=== PATIENT | male | born 1960 | race Caucasian/White ===

== ENCOUNTER 2023-11-30 08:59 | Outpatient (CLI) | payer BC, SELFPAY | END 2023-11-30 09:00 | disposition home or self-care (01) | PROVIDERS: PCP Nurse Practitioner Family; Visit Provider Nurse Practitioner Family | DX: I48.91 Unspecified atrial fibrillation (principal); R06.02 Shortness of breath; Z12.5 Encounter for screening for malignant neoplasm of prostate; Z13.220 Encounter for screening for lipoid disorders | CPT/HCPCS: 80053; 80061; 83735; 83880; 84443; 84484; 85025; G0103 ==

== ENCOUNTER 2023-12-11 13:29 | Outpatient (CLI) | payer BC, SELFPAY | END 2023-12-11 13:30 | disposition home or self-care (01) | LOC: RAD 13:30 | PROVIDERS: PCP Nurse Practitioner Family; Visit Provider Nurse Practitioner Family | DX: I48.91 Unspecified atrial fibrillation (principal); I51.7 Cardiomegaly; I34.0 Nonrheumatic mitral (valve) insufficiency | CPT/HCPCS: 93306 ==

== ENCOUNTER 2023-12-11 14:56 | Emergency (ER) | payer BC, SELFPAY ==
[2023-12-11] VITALS (19 sets, daily range): BP systolic 86–129; BP diastolic 50–94; PULSE 88–109; RESP 14; TEMP 36.6; O2SAT 93–97; BMI 45.6
--- NOTE | 2023-12-11 16:18 | ED.GENADULT ---
HPI - General Adult General Date Seen: 12/11/23 Chief complaint: Arrhythmia/Palpitations Stated complaint: Elevated HR during procedure Time Seen by Provider: 12/11/23 16:18 History of Present Illness HPI narrative: 63-year-old male with a history of hyperlipidemia, atrial fibrillation, lower extremity edema. His med list includes apixaban 5 mg b.i.d. and metoprolol 25 mg b.i.d. Sounds like his AFib was 1st diagnosed on 11/29. He was started on metoprolol 25 mg b.i.d. and Eliquis 5 mg b.i.d. He saw Dr. Hairston in clinic on 12/05/2023 for follow-up of his AFib. He followed up in clinic for recheck on 12/04. He is scheduled to have an echo on 12/10 (today) and a cardiology appointment on 12/27. He has a history of bilateral lower extremity edema, left more than right for about 1 or 2 months. Labs showed white blood cell count of 6.9, hemoglobin 14.8, BUN and creatinine normal. Glucose 107. LFTs normal. Troponin negative. N terminal proBNP was 2150. TSH was normal at 1.09 He was referred to the ER today because he had tachycardia on his echocardiogram. Heart rates reported up to around 170. The patient says he is basically feeling fine. He was not really sure that he should come over to the ER today. He notes that he has been feeling ?slow? for the past couple of months. He thought it might just be because he is getting old and fat. However he did not really have any significant changes BMI over the past couple of months. He is not having any chest pain he is not feeling any palpitations. He does feel short of breath sometime, sometimes with exertion and sometimes when he is out in the heat. He does have some swelling in his ankles which is stable for the past couple of months. He was given a prescription for a diuretic by his doctor last week, but has not started taking it. He is taking his metoprolol and his Eliquis twice daily as directed. He also had a URI in a cough about a month ago that got better. He has another URI and cough productive of some sticky clear sputum for the past 4 days or so. No fever. No new shortness of breath. No nausea or vomiting. No diarrhea. Related Data Previous Rx's ?Medication ?Instructions ?Recorded apixaban 5 mg tablet (Eliquis) 5 mg PO BID #180 tabs 11/30/23 metoprolol tartrate 25 mg tablet 25 mg PO BID 90 days #180 tabs 11/30/23 atorvastatin 20 mg tablet (Lipitor) 20 mg PO QHS #90 tabs 12/05/23 chlorthalidone 25 mg tablet 25 mg PO QDAY #90 tabs 12/05/23 nirmatrelvir 300 mg (150 mg See Rx Instructions PO .COMPLEX 12/11/23 x2)-ritonavir 100 mg tablet,dose #30 ea pack (Paxlovid) Allergies Allergy/AdvReac Type Severity Reaction Status Date / Time No Known Drug Allergies Allergy Verified 12/05/23 09:46 [facility] Social History Smoking Status: Never smoker Do you use any of these nicotine containing products: None How often do you have a drink containing alcohol: never How often do you have six or more drinks on one occasion: Never AUDIT-C Alcohol total score: 0 Non-prescribed substance use: denies use Exam Narrative: Exam Narrative: Constitutional: Appears well-developed and well-nourished. Alert. Conversant. Non toxic. HENT: Head: Atraumatic. Nose: Nose normal. Mouth/Throat: Oral mucosa is clear and moist. no trismus. Pharynx normal. Tonsils symmetric. No tonsillar enlargement, erythema, or exudate. Eyes: Conjunctivae normal. EOM normal. Pupils equal, round, and reactive to light. No scleral icterus. Neck: Normal range of motion. Neck supple. No tracheal deviation present. No JVD Cardiovascular: Tachycardic, irregular irregular rhythm. No gallop. No friction rub. No murmur heard. Symmetric radial artery pulses Pulmonary/Chest: Effort normal. No stridor. No respiratory distress. No wheezes. No rales. No rhonchi . No tenderness. Abdominal: Soft. Protuberant due to body habitus No distension. No mass. No tenderness. No rebound. No guarding. Musculoskeletal: RUE: Normal range of motion. No tenderness. No deformity LUE: Normal range of motion. No tenderness. No deformity RLE: Normal range of motion. 1+ edema. No tenderness. No deformity LLE: Normal range of motion. 1+ edema. No tenderness. No deformity Neurological: Alert and oriented to person, place, and time. Normal strength. CN II-VII intact. No sensory deficit. GCS eye subscore is 4. GCS verbal subscore is 5. GCS motor subscore is 6. Normal coordination Skin: Skin is warm and dry. No rash noted. No pallor. Normal capillary refill. Psychiatric: Normal mood. Normal affect. Const: Vital Signs, click to edit/add: Vital Signs - 24 hr 12/11/23 15:23 12/11/23 15:44 12/11/23 15:45 Temperature 97.8 F Pulse Rate 101 H 109 H Pulse Rate [Pulse Oximeter] 102 H Respiratory Rate 14 Blood Pressure 115/94 H Blood Pressure [Ri ght Upper Arm] 118/88 Pulse Oximetry 96 95 93 Oxygen Delivery Me od Room Air 12/11/23 16:41 12/11/23 16:45 12/11/23 16:54 Temperature Pulse Rate 88 90 107 H Pulse Rate [Pulse Oximeter] Respiratory Rate Blood Pressure 129/94 H Blood Pressure [Ri ght Upper Arm] Pulse Oximetry 94 94 94 Oxygen Delivery Me thod 12/11/23 16:55 12/11/23 17:22 12/11/23 17:23 Temperature Pulse Rate 104 H 98 97 Pulse Rate [Pulse Oximeter] Respiratory Rate Blood Pressure 102/76 Blood Pressure [Ri ght Upper Arm] Pulse Oximetry 94 96 97 Oxygen Delivery Pr thod 12/11/23 17:28 12/11/23 17:30 12/11/23 17:31 Temperature Pulse Rate 98 97 93 Pulse Rate [Pulse Oximeter] Respiratory Rate Blood Pressure 86/73 L 110/68 Blood Pressure [Ri ght Upper Arm] Pulse Oximetry 96 96 93 Oxygen Delivery Me thod 12/11/23 17:45 12/11/23 18:00 12/11/23 18:02 Temperature Pulse Rate 98 102 H 108 H Pulse Rate [Pulse Oximeter] Respiratory Rate Blood Pressure 120/50 L Blood Pressure [Ri ght Upper Arm] Pulse Oximetry 95 96 96 Oxygen Delivery Me thod 12/11/23 18:15 12/11/23 18:30 12/11/23 18:32 Temperature Pulse Rate 108 H 104 H 103 H Pulse Rate [Pulse Oximeter] Respiratory Rate Blood Pressure 112/81 Blood Pressure [Ri ght Upper Arm] Pulse Oximetry 95 95 96 Oxygen Delivery Me thod 12/11/23 18:45 Temperature Pulse Rate 107 H Pulse Rate [Pulse Oximeter] Respiratory Rate Blood Pressure Blood Pressure [Ri ght Upper Arm] Pulse Oximetry 96 Oxygen Delivery Me thod Course Course ED Course: Evaluation performed in ER bed 4. He does have AFib with RVR on the monitor. Has a known history of AFib 1st diagnosed on November 29 but probably has been symptomatic for couple of months. His only symptoms that he feels ?a little bit slow. ?. Without a clear time of onset he would not be safe for cardioversion. He has been therapeutically anticoagulated now for about 9 days. Typically would need to wait 4-6 weeks of anticoagulation before cardioversion would be safe without DARCI. Therefore will offer rate control. Discussed the potential need for hospitalization with the patient. He says he strongly wants to go home and that we should try hard to get his heart rate at a control and discharge him. Recheck-heart rate still in the 120s-130s after metoprolol 5 mg IV. Second dose metoprolol 5 mg IV ordered. Will also order to additional 25 mg metoprolol p.o.. Reevaluation(s) Reevaluation #1: Recheck-heart rate now ranging about 100-115. Predominantly in the 100s, less than 110. Patient continues to be essentially asymptomatic. Occasional cough. No palpitations. No shortness of breath. Blood pressure stable. Recheck-heart rate remains fairly consistently less than 110 but still irregular with AFib. Reevaluation #2: Recheck-COVID positive. Discussed test results with the patient. He would want to treat with Paxlovid. We reviewed his meds. He will left hold his lipid medication and have the dose of his apixaban while on Paxlovid. Given his age, risk factors, I do think he would qualify for Paxlovid. His current illness is been present for about 3 days he would be within the would. Prescription provided. He still wants to discharge home despite his AFib. At this point heart rate has been controlled. I think it is reasonable to discharge home for now. Vital Signs Vital signs: Initial Vital Signs Temperature 97.8 F 12/11/23 15:23 Temperature Source Temporal Artery Scan 12/11/23 15:23 Pulse Rate 102 H 12/11/23 15:23 Pulse Rhythm Regularly Irregular 12/11/23 15:23 Respiratory Rate 14 12/11/23 15:23 Blood Pressure 118/88 12/11/23 15:23 Blood Pressure Mean 98 12/11/23 15:23 Blood Pressure Position Sitting 12/11/23 15:23 Pulse Oximetry 96 12/11/23 15:23 Oxygen Delivery Method Room Air 12/11/23 15:23 Vital Signs Temperature 97.8 F 12/11/23 15:23 Pulse Rate 102 H 12/11/23 15:23 Respiratory Rate 14 12/11/23 15:23 Blood Pressure 118/88 12/11/23 15:23 Pulse Oximetry 96 12/11/23 15:23 Oxygen Delivery Method Room Air 12/11/23 15:23 Temperature 97.8 F 12/11/23 15:23 Pulse Rate 107 H 12/11/23 18:45 Respiratory Rate 14 12/11/23 15:23 Blood Pressure 112/81 12/11/23 18:32 Pulse Oximetry 96 12/11/23 18:45 Oxygen Delivery Method Room Air 12/11/23 15:23 Medications Administered Medications: Discontinued Medications Generic Name Dose Route Start Last Admin Trade Name Freq PRN Reason Stop Dose Admin Metoprolol Tartrate 5 mg 12/11/23 16:42 12/11/23 16:51 Metoprolol Tartrate 1 Mg/Ml Inj IVP 12/11/23 16:43 5 mg ONCE ONE Administration Metoprolol Tartrate 5 mg 12/11/23 17:33 12/11/23 17:37 Metoprolol Tartrate 1 Mg/Ml Inj IVP 12/11/23 17:34 5 mg ONCE ONE Administration Metoprolol Tartrate 25 mg 12/11/23 17:50 12/11/23 17:55 Metoprolol Tartrate 25 Mg Tablet PO 12/11/23 17:51 25 mg ONCE ONE Administration Medical Decision Making [facility] Narrative Medical decision making narrative: This patent presents for evaluation of elevated heart rate in the setting of recently diagnosed AFib.. This is consistent with atrial fibrillation with rapid ventricular response. Since he has had symptoms for an undetermined amount of time but at least 10 days, and has only been on 9 days of anticoagulation, he is not a good candidate for electrical cardioversion due to risk of embolic stroke. Therefore will opt for rate control. He is already on metoprolol 25 mg b.i.d.. He received additional IV doses of metoprolol 5 mg IV x2 and also additional oral metoprolol 25 mg p.o.. With this, heart rate improved and is now fairly consistently 110 or lower. Blood pressure remained stable and he remains essentially asymptomatic. I doubt acute coronary syndrome, thyroid issues, PE, dissection, drug ingestion, acute electrolyte imbalance. Labs and CXR look ok. No sinus CHF on the chest x-ray he has no hypoxia or shortness of breath. He does have cardiomegaly. BNP is elevated but I think that probably reflects myocardial strain from AFib with RVR rather than CHF. He has also had a cough for the past 3 or 4 days. Chest x-ray clear negative for pneumonia. No wheezing or bronchospasm on exam. Oxygen sat normal. Clinically well-appearing. White count normal. He is positive for COVID. Given medical comorbidities he would be high risk for severe illness and therefore a good candidate for Paxlovid. We will start that with prescription tonight. He will have to hold his lipid medication while on Paxlovid due to interactions. He will have to decrease his dose of apixaban by half full on Paxlovid. He wants i to discharge home. Will increase his metoprolol from 25 mg b.i.d. up to 50 mg b.i.d.. He will follow up outpatient with Cardiology. Had a detailed discussion about return precautions with this patient. Discussed the risks of uncontrolled AFib and/or slow heart rate from metoprolol. Also discussed the risk of worsening COVID. He understands and will return if any concerns develop. Questions answered. Lab Data Labs: Lab Results 12/11/23 12/11/23 Range/Units 16:05 16:20 WBC 5.56 (4.50-11.00) K/uL RBC 5.10 (4.30-5.90) m/uL Hgb 13.5 (13.5-17.5) gm/dL Hct 42.1 (37.0-53.0) % MCV 83 (80-100) fL MCH 27 (26-34) pg MCHC 32 (32-36) gm/dL RDW Coeff of Machelle 13.5 (11.5-15.5) % Plt Count 178 (140-440) K/uL Neut % (Auto) 57.9 (42.0-72.0) % Lymph % (Auto) 16.2 L (20-44) % Avery % (Auto) 17.1 H (0.0-11.0) % Eos % (Auto) 5.4 (0.0-7.0) % Baso % (Auto) 0.7 (0.0-3.0) % Neut # (Auto) 3.22 (1.7-7.0) K/uL Lymph # (Auto) 0.90 (0.90-2.90) K/uL Avery # (Auto) 1.00 H (0.00-0.90) K/UL Eos # (Auto) 0.30 (0.00-0.50) K/uL Baso # (Auto) 0.04 (0.00-0.30) K/uL Abs Immat Gran (auto) 0.15 (0.00-0.30) K/uL Imm/Tot Granulo (auto) 2.7 % D-Dimer Quant (PE/DVT) 0.60 H (0.00-0.50) ug/ml Sodium 134 L (135-149) mmol/L Potassium 3.6 (3.6-5.1) mmol/L Chloride 96 (96-114) mmol/L Carbon Dioxide 30 (20-32) mmol/L Anion Gap 8 (7-15) mEq/L BUN 20 (7-30) mg/dL Creatinine 0.9 (0.5-1.5) mg/dL Estimated Creat Clear 72.20 Estimated GFR 95 ml/min Glucose 113 (60-115) mg/dL Calcium 8.8 (8.4-10.6) mg/dL Troponin I < 0.01 L (0.01-0.04) ng/mL NT-Pro-B Natriuret Pep 2170 pg/mL SARS-CoV-2 (PCR) POSITIVE SARS-CoV-2 A (Negative) Influenza Type A (PCR) Negative PCR FLU A (Negative) Influenza Type B (PCR) Negative PCR FLU B (Negative) RSV (PCR) Negative PCR RSV (Negative) Imaging Data Chest x-ray: Attestation: I have reviewed the pertinent imaging results. Radiologist's impression: IMPRESSION: 1. Mild, stable cardiomegaly is noted. ECG Data Attestation: I personally reviewed and interpreted this ECG as follows: Interpretation: Atrial fibrillation with RVR Rate: 131 [place]: na QRS axis: Normal axis. No pathologic Q-waves feel ST segment/T wave: No ST segment elevation or depression. QTc: 490 Discharge Plan Discharge Clinical Impression: Atrial fibrillation with rapid ventricular response, COVID-19 Patient Disposition: Home, Self-Care Condition: Stable Instructions: A-fib (Atrial Fibrillation) (ED), COVID-19 (Coronavirus Disease 2019) (ED), How to Recover from COVID-19 at Home (ED) Additional Instructions: As we discussed, your atrial fibrillation was causing a heart rate that was too rapid today. We were able to bring your heart rate down to a safer range with the extra metoprolol. To keep your heart rate under control, increase your home dose of metoprolol up to 50 mg twice daily (2 tablets in the morning and 2 tablets in the evening) You also have coronavirus. Fortunately your oxygen it and other blood pressure are stable. We will start the antiviral medication Paxlovid to treat your COVID. Fill the Paxlovid prescription tomorrow morning and take your 1st dose tomorrow. Paxlovid is taken twice daily for 5 days. While you are on Paxlovid, do not take your cholesterol medication. While you are on Paxlovid, you should decrease the dose of Eliquis (the blood thinner for your atrial fibrillation) to 2.5 mg twice a day (half a pill in the morning and half a pill in the evening) After you finish taking Paxlovid, go back to the full dose of Eliquis (1 pill in the morning and 1 pill in the evening) and you can start taking your cholesterol medication. Measure heart rate 2 times a day and keep a log of your heart rate. If you have any heart rate over 110 beats per minute come back to the ER. If you have any worsening symptoms such as worsening cough, trouble breathing, chest pain, dizzy spells or fainting, high fever, weakness, dehydration, or any problems, come back to the ER right away. Prescriptions: New Paxlovid 300 mg (150 mg x 2)-100 mg tablets,dose pack See Rx Instructions .ROUTE .COMPLEX Qty: 30 0RF Rx Instructions: take TWO 150 mg tablets of nirmatrelvir with ONE 100 mg tablet of ritonavir twice daily for 5 days No Action atorvastatin [Lipitor] 20 mg tablet 20 mg PO QHS Qty: 90 3RF chlorthalidone 25 mg tablet 25 mg PO QDAY Qty: 90 3RF metoprolol tartrate 25 mg tablet 25 mg PO BID 90 Days Qty: 180 3RF Eliquis 5 mg tablet 5 mg PO BID Qty: 180 3RF Follow Up/Referrals: Indira Hairston, [employer], F[employer]DER [Primary Care Provider] - Stand Alone Forms: MyHealth Info Instructions
--- NOTE | 2023-12-11 16:42 | CRLHL7_ITS ---
For Patients: As a result of the Cures Act, medical imaging exams and procedure reports are released immediately into your electronic medical record. You may view this report before your referring provider. If you have questions, please contact your health care provider. INDICATION: Cough, atrial fibrillation with rapid ventricular response TECHNIQUE: Chest radiograph 2 views COMPARISON: 11/30/2023 FINDINGS: The sensitivity and specificity of the exam are moderately limited by the patient`s body habitus. Mediastinum: The mediastinum is normal in appearance. Mild, stable cardiomegaly is noted. Lung: Both lungs are unremarkable in appearance. No sign of pleural effusion seen. No pneumothorax is identified. Bone and Soft tissue: Unremarkable for age. IMPRESSION: 1. Mild, stable cardiomegaly is noted. Dictated by Brennen Leal MD @ 12/11/2023 6:06:22 PM Dictated by: Brennen Leal MD @ 12/11/2023 18:06:47 (Electronically Signed)
[2023-12-11] MEDS: METOPROLOL TARTRATE 1 MG/ML inj 5 MG IVP ×2 (16:51→17:37)
[2023-12-11 17:02] LABS: Basophils Absolute Auto 0.04 K/uL (0.00-0.30); Basophils Percent Auto 0.7 % (0.0-3.0); Eosinophils Percent Auto 5.4 % (0.0-7.0); Hematocrit 42.1 % (37.0-53.0); Hemoglobin* 13.5 gm/dL (13.5-17.5); Immature Granulocytes Abs Auto 0.15 K/uL (0.00-0.30); Immature Granulocytes Pct Auto 2.7 %; Lymphocytes Percent Auto 16.2 % (20-44); Mean Corpuscular HGB Conc 32 gm/dL (32-36); Mean Corpuscular Hemoglobin 27 pg (26-34); Mean Corpuscular Volume 83 fL (80-100); Monocytes Percent Auto 17.1 % (0.0-11.0); Neutrophils Absolute Auto 3.22 K/uL (1.7-7.0); Neutrophils Percent Auto 57.9 % (42.0-72.0); Platelet Count* 178 K/uL (140-440); RDW Coefficient of Variation % 13.5 % (11.5-15.5); White Blood Count* 5.56 K/uL (4.50-11.00)
[2023-12-11 17:05] LABS: Slide Review Reflex No
[2023-12-11 17:30] LABS: Chloride* 96 mmol/L (96-114); Potassium* 3.6 mmol/L (3.6-5.1); Sodium* 134 mmol/L (135-149)
[2023-12-11 17:33] LABS: Anion Gap 8 mEq/L (7-15); Blood Urea Nitrogen* 20 mg/dL (7-30); Carbon Dioxide* 30 mmol/L (20-32); Creatinine* 0.9 mg/dL (0.5-1.5); Estimated Glomerular Filt Rate 95 ml/min
[2023-12-11 17:34] LABS: Calcium* 8.8 mg/dL (8.4-10.6); Glucose* 113 mg/dL (60-115)
[2023-12-11 17:40] LABS: PCR FLU A Negative PCR FLU A (Negative); PCR FLU B Negative PCR FLU B (Negative); PCR RSV Negative PCR RSV (Negative); SARS PCR* POSITIVE SARS-CoV-2 (Negative)
[2023-12-11 17:50] LABS: NT Pro B Type NatriureticPept* 2170 pg/mL; Troponin I* < 0.01 ng/mL (0.01-0.04)
[2023-12-11] MEDS: METOPROLOL TARTRATE 25 MG TABLET PO (17:55)
== END 2023-12-11 19:24 | disposition home or self-care (01) ==
PROVIDERS: Emergency Provider Emergency Medicine; PCP Nurse Practitioner Family
DX: U07.1 COVID-19 (principal); I48.91 Unspecified atrial fibrillation
CPT/HCPCS: 36415; 71046; 80048; 83880; 84484; 85025; 85379; 87631; 93306; 96374; 96375; 99284; A9270

== ENCOUNTER 2023-12-13 19:49 | Outpatient (CLI) | payer BC, SELFPAY ==
--- NOTE | 2023-12-26 08:44 | W.PM.SLEEP ---
Sleep Study Details Details Interpreting Provider: Eduardo Date of Sleep Study: 12/13/23 Sleep Study Details: STUDY TYPE:? Home unattended ? BMI:? 45.6 ORDERING PROVIDER:Maryann Hairston INDICATION:? Concerned about sleep apnea ? SLEEP SUMMARY:? 327.8 minutes monitored RESPIRATORY SUMMARY:? AHI 64.2 Low oxygen 78 25.4% of study oxygen less than 90% Snoring 46.5% PERIODIC LIMB MOVEMENTS OF SLEEP:? Not recorded CARDIAC:? Range 41-136, mean 81.7 IMPRESSION:? Severe obstructive sleep apnea with significant hypo oxygenation. Bradycardia and tachycardia were noted as well RECOMMENDATION: Further cardiac evaluation may be indicated because of bradycardia and tachycardia. For the sleep apnea would recommend an in-lab titration. If that is not possible would start AutoSet CPAP pressure 4-18.
== END 2023-12-13 19:50 | disposition home or self-care (01) ==
LOC: SLEEP 19:50
PROVIDERS: PCP Nurse Practitioner Family; Visit Provider Nurse Practitioner Family
DX: I48.91 Unspecified atrial fibrillation (principal); I51.7 Cardiomegaly; I34.0 Nonrheumatic mitral (valve) insufficiency
CPT/HCPCS: 95806

== ENCOUNTER 2024-10-14 09:29 | Outpatient (CLI) | payer BC, SELFPAY | END 2024-10-14 09:30 | disposition home or self-care (01) | PROVIDERS: PCP Nurse Practitioner Family; Visit Provider Nurse Practitioner Family | DX: E78.5 Hyperlipidemia, unspecified (principal); R60.0 Localized edema; Z51.81 Encounter for therapeutic drug level monitoring | CPT/HCPCS: 80053; 85025 ==

== ENCOUNTER 2024-10-28 09:54 | Outpatient (CLI) | payer BC, SELFPAY | END 2024-10-28 09:55 | disposition home or self-care (01) | PROVIDERS: PCP Nurse Practitioner Family; Visit Provider Nurse Practitioner Family | DX: E78.5 Hyperlipidemia, unspecified (principal) | CPT/HCPCS: 80048; 80061 ==

== ENCOUNTER 2024-11-04 06:02 | Day surgery (SDC) | payer BC, SELFPAY ==
[2024-11-04] VITALS (14 sets, daily range): BP systolic 107–135; BP diastolic 52–88; PULSE 62–76; RESP 14–16; TEMP 36.5–37.1; O2SAT 93–100; BMI 42.2
[2024-11-04] MEDS: LACTATED RINGERS 1000 ML 1,000 ML 100 ML IV ×2 (06:30→08:29)
[2024-11-04] MEDS: SODIUM CHLORIDE 0.9 % (FLUSH) 10 ML SYRINGE IVF (06:34)
[2024-11-04] MEDS: ACETAMINOPHEN 500 MG TABLET 1000 MG PO ×2 (07:00→12:54)
--- NOTE | 2024-11-04 07:00 | W.PM.H&PU ---
History & Physical Update History & Physical Update H&P Reviewed and patient assessed: No changes noted
[2024-11-04] MEDS: OXYCODONE (CR) 10 MG TAB.ER.12H PO (07:04)
--- NOTE | 2024-11-04 07:05 | SUR.PREOP ---
TIME?OUT:?05 PT/RN/MDA?VERIFICATION?OF?SURGICAL?SITE,?PROCEDURE,?AND?CONSENT OBTAINED?PRIOR?TO?INVASIVE?PROCEDURE.
[2024-11-04] MEDS: MIDAZOLAM HCL 1 MG/ML inj IVP (07:06)
--- NOTE | 2024-11-04 07:15 | CRLHL7_ITS ---
For Patients: As a result of the Cures Act, medical imaging exams and procedure reports are released immediately into your electronic medical record. You may view this report before your referring provider. If you have questions, please contact your health care provider. Indication: Hip replacement surgery Technique: AP hip fluoroscopic image. Fluoroscopy time 35.7 seconds. Findings/Impression: Hardware from a left total hip arthroplasty is in satisfactory position. Dictated by Bernard Zamora MD @ 11/04/2024 9:30:50 AM (Electronically Signed)
[2024-11-04] MEDS: TRANEXAMIC ACID 100 MG/ML INJ 1000 MG IV (07:38)
--- NOTE | 2024-11-04 08:12 | P.ANES_ITS ---
Anesthesia Charges Start Date/Time Anesthesia Start Date: 11/04/24 Anesthesia Start Time: 07:21 Stop Date/Time Anesthesia Stop Date: 11/04/24 Anesthesia Stop Time: 10:13 Coding CPT Codes CPT Codes: ANESTH HIP ARTHROPLASTY - 66087 ([id number]) P3 - PATIENT W/SEVERE SYS DISEASE, QK - ROUTE SALESPERSON 2-4 CNCRNT ANES PROC, QX - UX ENGINEER SVC W/ MD MED DIRECTION
--- NOTE | 2024-11-04 08:12 | W.PM.NB ---
Nerve Block Nerve Block Time Seen by Provider: 07:10 Date Seen: 11/04/24 Type of block requested by surgeon for post-operative analgesia: SOTERO/LFCN Side: left Time out performed: Yes Verification of patient name: Yes Verification of date of : Yes Site marking: site marked Name of person performing procedure: David Continuous monitoring Was continuous monitoring of O2 sat, B/P, personnel monitor, recorded every 15 minutes?: Yes Procedure Checklist: sterile prep, needles and gloves Ultrasound guided. Images saved: Yes Medications given in 5ml increments after negative aspiration: Ropivicaine %: 0.5 mL: 30 Needle gauge: 20 Precedex (mcg): 25 Patient tolerated procedure well: Yes Additional comments: Needle noted below psoas tendon needle noted adjacent to LFCN Block Charges Block Charge (with Pro Fee): Other Periph Nerve Block Use of Ultrasound Machine for Block: Yes- US Guidance/pain block
--- NOTE | 2024-11-04 08:12 | W.ANESCHARGE ---
Anesthesia Charges Start Date/Time Anesthesia Start Date: 11/04/24 Anesthesia Start Time: 07:21 Stop Date/Time Anesthesia Stop Date: 11/04/24 Anesthesia Stop Time: 10:13 Coding CPT Codes CPT Codes: ANESTH HIP ARTHROPLASTY - 42353 ([id number]) P3 - PATIENT W/SEVERE SYS DISEASE, QK - ROAD FREIGHT CONDUCTOR 2-4 CNCRNT ANES PROC, QX - CANDLE MAKER SVC W/ MD MED DIRECTION
--- NOTE | 2024-11-04 09:20 | P.ORPRC_ITS ---
Procedure Note Date of procedure: 11/04/24 Procedure: PREOPERATIVE DIAGNOSIS: 1. Left hip osteoarthritis, severe, primary POSTOPERATIVE DIAGNOSIS: 1. Left hip osteoarthritis, severe, primary PROCEDURE: 1. Left total hip arthroplasty-anterior approach 2. [id number] - intraoperative fluoroscopy up to 1 hour. SURGEON: Cong Sims MD. RELAY MOTORMAN: Alvin Souza PA-C; ROMANA Kumar - Of note, a skilled assistant family teacher was critical for this case to aid in patient positioning, tissue retraction, limb manipulation/positioning, dislocation/relocation, patient safety, and closure. ANESTHESIA: General endotracheal anesthetic EBL: 400 mL IMPLANTS: DePuy J&J uncemented total hip [place] cup size 58, hole eliminator, +4 neutral liner Actis stem, high offset, size 9 +1.5 mm ceramic 36 mm head. COMPLICATIONS: None evident INDICATIONS: The patient is a pleasant 64-year-old male who has experienced severe left hip pain and difficulty bearing weight. Workup included x-rays which revealed severe osteoarthrosis in the hip. Given the deformity, the dysfunction, and the pain, as well as the failure of nonoperative management, recommendation was made for surgery. FINDINGS: Full-thickness chondral loss diffusely throughout the femoral head and acetabulum. Osteophytes around the femoral head/neck junction and acetabular perimeter. Calcified labrum. Significant joint effusion and synovitis noted upon entering the joint capsule. DESCRIPTION OF PROCEDURE: Following a thorough discussion of risks, benefits, and alternatives consent was obtained and the left hip was marked. The patient was brought to the operating room and placed supine on the operating table. Induction of anesthesia was undertaken. 3 g IV Ancef and 1 g tranexamic acid was administered within 1 hr of incision preoperatively. Proper time-out was performed identifying proper patient, site, procedure. The operative extremity was prepped and draped in the appropriate sterile fashion using ChloraPrep after the patient was positioned on the [place] table with head in neutral alignment and all bony prominences well padded. C-arm fluoroscopic imaging was utilized to confirm proper pelvis rotation and position, and to get true AP films of both the contralateral left, and the affected left hip. This is for comparison. A longitudinal incision was made starting approximately 1 cm distal to the ASIS, and 2-3 cm lateral. The incision was extended distally aiming toward the fibular head. Sharp incision through skin and bovie cautery through the subcutaneous tissue allowed identification of the TFL fascia. This was sharply divided, and the fascia bluntly released from the muscle fibers as we dissected medial. Upon coming to the medial border, we were able to retract the TFL laterally, and penetrated the deeper fascia and identify the crossing circumflex vessels. These were ligated/cauterized. The rectus was elevated from the capsule, and retractors placed laterally and medially along the femoral neck to help with visualization of the capsule. We then performed an inverted T capsulotomy. The capsule was tagged for later repair. Retractors were placed inside the capsule. The femoral neck was visualized after releasing medially down to the lesser trochanter, along the saddle laterally, and up onto the acetabulum. The femoral neck cut was made in line with our preoperative templating. The head was removed in a single piece, and sized. We turned our attention to acetabular preparation. Initially, the labrum was resected from around the perimeter, the pulvinar was excised, allowing us to visualize the false wall. We started the reaming with a 43 mm reamer. This was medialized down to the true wall. We then enlarged our reamers sequentially up to one size less than the selected cup size. We trialed at the same size and found it to have an excellent fit. The selected cup was then opened, inserted, and impacted in line with the goal of 40-45? of abduction, and 20-25? of anteversion. This was confirmed on C-arm fluoroscopic imaging to be in the appropriate/goal position. Once the cup was placed we placed a hole eliminator and a liner consistent with preop planning. Attention was turned to the femoral preparation. The limb was extended, externally rotated, and adducted. The posteromedial capsule was released, as retractors were placed allowing excellent access to the proximal femur. Initially a box hinge and lock attacher was followed by canal finder followed by various broaches. We broached sequentially up to size noted above, found it to have excellent rotational control, and trialing various heads and necks, revealed that appropriate neck offset, and the above noted head size provided the greatest stability, and amish of length, and offset. C-arm fluoroscopic imaging confirmed position of the stem, as well as leg lengths, which were compared with the pre procedure all fluoroscopic images. Trial implants were removed, the real femoral stem inserted, as was the ceramic head. After reducing, the leg was placed through range of motion and stability was confirmed anterior, posterior, and lateral. A 3 min Betadine soak was then performed, and thorough irrigation with normal saline followed. Closure of the capsule was performed with #1 PDS. Bleeding was confirmed to be controlled at this stage, and the TFL fascia was closed with #0 strata fix. Subcutaneous, and subcuticular closure was performed with 2-0 Stratafix and 4-0 Stratafix, respectively. Dressings were applied, and the patient was awoken from anesthesia and transferred the PACU in stable condition. A skilled assistant family teacher was critical for this case to aid in patient positioning, tissue retraction, proximal femur exposure, limb manipulation/positioning, dislocation/relocation, patient safety, and closure. PLAN: 1. Weight bear as tolerated operative extremity. 2. 23 hr perioperative antibiotics. 3. Ice. 4. PT/OT consults for ambulation assistance/mobility education. 5. Social work consult for discharge planning. 6. DVT prophylaxis with at [facility] and he will return to his Eliquis use of 5 mg p.o. b.i.d..
--- NOTE | 2024-11-04 10:13 | CRLHL7_ITS ---
For Patients: As a result of the Cures Act, medical imaging exams and procedure reports are released immediately into your electronic medical record. You may view this report before your referring provider. If you have questions, please contact your health care provider. Indication: total hip replacement Technique: AP hip centered pelvis and lateral view left hip Findings/Impression: Hardware from a left total hip arthroplasty is in satisfactory position. Bone alignment is normal. No sign of acute fracture. Postop changes are within normal limits. Dictated by Bernard Zamora MD @ 11/04/2024 12:11:23 PM (Electronically Signed)
--- NOTE | 2024-11-04 10:15 | P.ANES_ITS ---
Anesthesia Charges Start Date/Time Anesthesia Start Date: 11/04/24 Anesthesia Start Time: 07:21 Stop Date/Time Anesthesia Stop Date: 11/04/24 Anesthesia Stop Time: 10:13 Coding CPT Codes CPT Codes: ANESTH HIP ARTHROPLASTY - 33683 ([id number]) P3 - PATIENT W/SEVERE SYS DISEASE, QK - PULL OVER MACHINE OPERATOR 2-4 CNCRNT ANES PROC, QX - CATH LABORATORY TECHNICIAN SVC W/ MD MED DIRECTION
--- NOTE | 2024-11-04 10:15 | W.ANESCHARGE ---
Anesthesia Charges Start Date/Time Anesthesia Start Date: 11/04/24 Anesthesia Start Time: 07:21 Stop Date/Time Anesthesia Stop Date: 11/04/24 Anesthesia Stop Time: 10:13 Coding CPT Codes CPT Codes: ANESTH HIP ARTHROPLASTY - 41349 ([id number]) P3 - PATIENT W/SEVERE SYS DISEASE, QK - CYLINDER DEVALVER 2-4 CNCRNT ANES PROC, QX - DIE ENGRAVER SVC W/ MD MED DIRECTION
[2024-11-04] MEDS: LACTATED RINGERS 1000 ML 1,000 ML 500 ML IV (10:50)
== END 2024-11-04 13:55 | disposition home or self-care (01) ==
LOC: OR 06:03
PROVIDERS: PCP Nurse Practitioner Family; Visit Provider Orthopaedic Surgery Sports Medicine
PROC: (CPT 27130; principal; 2024-11-04 07:15)
DX: M16.12 Unilateral primary osteoarthritis, left hip (principal); G89.18 Other acute postprocedural pain
CPT/HCPCS: 27130; 01214; 36415; 64450; 73501; 76000; 76942; 86850; 86900; 86901; 97110; 97116; 97162; 97165; 97535; A9270; C1776; J0330; J0690; J1100; J1171; J2250; J2405; J2704; J2710; J2795; J3010; J3475; J3490; J7120

== ENCOUNTER 2024-11-18 09:45 | Outpatient (RCR) | payer BC, SELFPAY ==
--- NOTE | 2024-11-11 10:05 | PT.OPEX ---
PT [place] Outpatient Eval PT [facility] Outpatient Eval Start: 11/11/24 09:19 Freq: Status: Active Protocol: Document 11/11/24 09:19 NLR (Rec: 11/11/24 10:02 NLR [id number]) E-signed By Jayla Nava DPT Physical Therapy Outpatient Evaluation Insurance Information Recert Due Date 02/09/25 Insurance Name Blue Cross/Blue Shield Medical Diagnosis Z96.642 Left artificial hip joint Treating Diagnosis M25.552 Pain in left hip M62.552 Weakness left thigh Referring MD Quique Parker MD Subjective Preferred Name PAPA Subjective Papa arrives for his PT evaluation one week s/p left LOGAN with Dr. Parker (anterior approach) on 11/04/24. He has been showering and getting dressed on his own. Difficulty with socks, but he just stopped wearing them for now. He is walking independently with SPC. He has been icing with compression ice machine daily. Pain Comments 4/10 Not really painful, kind of numb and mild incisional pain. He is still taking the oxycodone, but is working on weaning off. 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 He lives in a multilevel house with his mother, bedroom and bathroom on the main floor. He has ramp to get into and out of house, has gone up and down stairs once at home. Precautions Weight Bearing Full Weight Bearing Status Therapy Limitations/ Not Limited Systems Review Objective Other/Pertinent HAND DOMINANCE: RHD Objective LOGAN APPROACH: Anterior ROM: RIGHT hip flexion 100; LEFT hip flexion 90 STRENGTH: RIGHT thigh 4+/5; LEFT thigh 3/5 POSTURE: Forward flexed PALPATION: Patient exhibits tenderness to palpation at incision EDEMA: +1 non pitting FUNCTIONAL: Sit to/from stand independent; sit to/from supine independent; bed mobility independent; self- dressing independent GAIT: modified independent with SPC FOOTWEAR: Patient arrives wearing slip on shoes EQUIPMENT: Patient has FWW, SPC Functional Test 11/11/24: HOOS-12 Score: 54.1 / 100 = 54.1 % Performed & Score Assessment Assessment/ Papa is a 64-year-old male who presents for skilled PT Impression evaluation presenting with left thigh weakness which is consistent with L LOGAN in the setting of left hip OA. Patient is an appropriate candidate for skilled physical therapy to target deficits described above. Skilled PT intervention is necessary to achieve goals as stated. D/C plan and criteria is for patient to achieve the goals as outlined or until max rehab potential is met. Patient was agreeable with plan of care and goals established. This evaluation is of low complexity due to the stable nature of the patient?s presentation as well as the low comorbidities and medical factors included in this evaluation. Primary Functional Difficulty walking without gait aid, unable to drive Limitations yet, difficulty negotiating stairs, difficulty getting on socks Plan of Care Rehabilitation Good Potential Rehabilitation Patient is otherwise healthy and motivated to improve Potential Comments in order to return to prior level of function. Physical Therapy 1. Patient will be independent with home exercise Goals program as instructed, modified and progressed by physical therapist in order to be independently and actively participating in their rehabilitation and return to prior level of function. Goal to be achieved by 02/07/2025. 2. Patient will demonstrate ability to walk for 90 minutes(s) without significant increase in pain greater than 2/10 to allow patient to be able to safely and independently return to participation in desired level of function with daily activities such going to work, walking for exercise without pain or difficulty. Goal to be achieved by 02/07/2025. 3. Patient will ascend/descend 2 full flight(s) of stairs with [id number] pattern without significant increase in difficulty or pain over 2/10 allowing for safe and independent mobility through their home/work environment. Goal to be achieved by 02/07/2025. Coordination/ Referral Source Communication With Treatment Plan/ Gait Training,Manual Therapy,Neuromuscular Re-ed,Self- Direct Interventions Care/Home Management,Therapeutic Exercises Frequency/Duration 1X/week for 2-4 visits Patient Will Be Completion of LTG(s),Skills Plateau,Independent w/HEP, Discharged From Independently Progressing Therapy Discharge Plan DC with HEP Comments Evaluation Billing Untimed Code 15 Treatment Minutes PT Eval No Charge No Complexity Low Certification Information Initial 11/11/24 Certification Date Ending Certification 02/09/25 Date Provider Signature Yes Required Provider Signature POC & Medical Necessity Shows Agreement With Physician NPI Number Write NPI# Here Physician Comment/ : Change Physician Signature Please Sign/Date Here & Date Requested
--- NOTE | 2024-11-11 10:22 | PT.OPEX ---
PT [place] Outpatient Eval PT [facility] Outpatient Eval Start: 11/11/24 09:19 Freq: Status: Active Protocol: Document 11/11/24 09:19 NLR (Rec: 11/11/24 10:02 NLR [id number]) E-signed By Jayla Nava DPT Physical Therapy Outpatient Evaluation Insurance Information Recert Due Date 02/09/25 Insurance Name Blue Cross/Blue Shield Medical Diagnosis Z96.642 Left artificial hip joint Treating Diagnosis M25.552 Pain in left hip M62.552 Weakness left thigh Referring MD Cong Sims MD Subjective Preferred Name PAPA Subjective Papa arrives for his PT evaluation one week s/p left LOGAN with Dr. Sims (anterior approach) on 11/04/24. He has been showering and getting dressed on his own. Difficulty with socks, but he just stopped wearing them for now. He is walking independently with SPC. He has been icing with compression ice machine daily. Pain Comments 4/10 Not really painful, kind of numb and mild incisional pain. He is still taking the oxycodone, but is working on weaning off. 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 He lives in a multilevel house with his mother, bedroom and bathroom on the main floor. He has ramp to get into and out of house, has gone up and down stairs once at home. Precautions Weight Bearing Full Weight Bearing Status Therapy Limitations/ Not Limited Systems Review Objective Other/Pertinent HAND DOMINANCE: RHD Objective LOGAN APPROACH: Anterior ROM: RIGHT hip flexion 100; LEFT hip flexion 90 STRENGTH: RIGHT thigh 4+/5; LEFT thigh 3/5 POSTURE: Forward flexed PALPATION: Patient exhibits tenderness to palpation at incision EDEMA: +1 non pitting FUNCTIONAL: Sit to/from stand independent; sit to/from supine independent; bed mobility independent; self- dressing independent GAIT: modified independent with SPC FOOTWEAR: Patient arrives wearing slip on shoes EQUIPMENT: Patient has FWW, SPC Functional Test 11/11/24: HOOS-12 Score: 54.1 / 100 = 54.1 % Performed & Score Assessment Assessment/ Papa is a 64-year-old male who presents for skilled PT Impression evaluation presenting with left thigh weakness which is consistent with L LOGAN in the setting of left hip OA. Patient is an appropriate candidate for skilled physical therapy to target deficits described above. Skilled PT intervention is necessary to achieve goals as stated. D/C plan and criteria is for patient to achieve the goals as outlined or until max rehab potential is met. Patient was agreeable with plan of care and goals established. This evaluation is of low complexity due to the stable nature of the patient?s presentation as well as the low comorbidities and medical factors included in this evaluation. Primary Functional Difficulty walking without gait aid, unable to drive Limitations yet, difficulty negotiating stairs, difficulty getting on socks Plan of Care Rehabilitation Good Potential Rehabilitation Patient is otherwise healthy and motivated to improve Potential Comments in order to return to prior level of function. Physical Therapy 1. Patient will be independent with home exercise Goals program as instructed, modified and progressed by physical therapist in order to be independently and actively participating in their rehabilitation and return to prior level of function. Goal to be achieved by 02/07/2025. 2. Patient will demonstrate ability to walk for 90 minutes(s) without significant increase in pain greater than 2/10 to allow patient to be able to safely and independently return to participation in desired level of function with daily activities such going to work, walking for exercise without pain or difficulty. Goal to be achieved by 02/07/2025. 3. Patient will ascend/descend 2 full flight(s) of stairs with [id number] pattern without significant increase in difficulty or pain over 2/10 allowing for safe and independent mobility through their home/work environment. Goal to be achieved by 02/07/2025. Coordination/ Referral Source Communication With Treatment Plan/ Gait Training,Manual Therapy,Neuromuscular Re-ed,Self- Direct Interventions Care/Home Management,Therapeutic Exercises Frequency/Duration 1X/week for 2-4 visits Patient Will Be Completion of LTG(s),Skills Plateau,Independent w/HEP, Discharged From Independently Progressing Therapy Discharge Plan DC with HEP Comments Evaluation Billing Untimed Code 15 Treatment Minutes PT Eval No Charge No Complexity Low Certification Information Initial 11/11/24 Certification Date Ending Certification 02/09/25 Date Provider Signature Yes Required Provider Signature POC & Medical Necessity Shows Agreement With Physician NPI Number Write NPI# Here Physician Comment/ : Change Physician Signature Please Sign/Date Here & Date Requested
== END 2024-11-22 17:03 | disposition home or self-care (01) ==
PROVIDERS: PCP Nurse Practitioner Family; Visit Provider Orthopaedic Surgery Sports Medicine
DX: Z47.1 Aftercare following joint replacement surgery (principal); Z96.642 Presence of left artificial hip joint; Z51.89 Encounter for other specified aftercare
CPT/HCPCS: 97110; 97161